=== PATIENT | female | born 1985 | race Caucasian/White ===

== ENCOUNTER 2024-11-21 15:34 | Outpatient (CLI) | payer BC, SELFPAY ==
[2024-11-21 15:50] VITALS: PULSE 79; O2SAT 100
[2024-11-21 15:51] VITALS: PULSE 78; O2SAT 90
[2024-11-21 15:52] VITALS: BP 113/65; PULSE 74
[2024-11-21 15:53] VITALS: TEMP 36.3
--- NOTE | 2024-11-21 16:14 | CRLHL7_ITS ---
For Patients: As a result of the Century Cures Act, medical imaging exams and procedure reports are released immediately into your electronic medical record. You may view this report before your referring provider. If you have questions, please contact your health care provider. Indication: contractions MIRA: 02/14/2025 Technique: Real-time sonographic images of the pelvis were obtained transabdominally using grayscale, color, and Doppler imaging. Comparison: None. Findings: A single intrauterine is present in breech position. Cardiac activity in the fetus is demonstrated at 150 BPM. Placenta: Posterior right. No previa or abruption. Amniotic Fluid: JAMES 19.8 cm, single deepest pocket measures 8.1 centimeter. Cervix is closed, measuring 4.1 centimeter. Impression: 1. Single living intrauterine gestation in breech presentation, with heartrate 150 BPM. 2. Posterior right placenta without previa or abruption. 3. JAMES 19.8 cm. Dictated by Sumanth Mcguire MD @ 11/21/2024 5:58:37 PM (Electronically Signed)
[2024-11-21 16:24] LABS: Appearance Urine Clear (Clear); Bilirubin Urine Negative (Negative); Blood Urine Negative (Negative); Color Urine Yellow (Yellow); Glucose Urine Negative (Negative); Ketones Urine Negative (Negative); Leukocyte Esterase Urine Negative (Negative); Nitrite Urine Negative (Negative); Protein Urine Negative (Negative); Specific Gravity Urine <= 1.005 (1.000-1.030); Urobilinogen Urine 0.2 (0.2-1.0); pH Urine 5.5 (5.0-8.5)
[2024-11-21 16:31] LABS: RBC Urine 0-2 (0-2); WBC Urine 0-2 (0-5)
[2024-11-21 16:36] LABS: Clue Cells No Clue Cells Seen (None Seen); Trichomonas No Trichomonas Seen (None Seen); Yeast No Yeast Seen (None Seen)
--- NOTE | 2024-11-21 17:23 | PM.OBLDTN ---
OB - Triage/Final Diagnosis Visit Information Time Seen by Provider: 17:23 Date Seen: 11/21/24 Narrative: The patient is a 39 year old 3 para 2 at 27+6 weeks gestation, who presents with contractions. She receives care through [facility] in [place] and is planning a home . Reports contractions and upper abdominal pain starting last evening. Kept her awake most of the night. Every 5-10 minutes at the most frequent. Also had some diarrhea, no nausea or vomiting, though notes that stomach flu recent went through her home. This AM contractions less frequent, but still fairly frequent. No LOF or vaginal bleeding. Normal movement. She called her research and development scientist and it was recommend she be evaluated at a hospital L&D. Here, she reports infrequent contractions during her stay in triage. I'm feeling the best I've felt in a few days. Evaluation Laboratory results: Laboratory Tests 11/21/24 11/21/24 Range/Units 16:17 16:15 Urine Color Yellow (Yellow) Urine Appearance Clear (Clear) Urine pH 5.5 (5.0-8.5) Ur Specific [place] <= 1.005 (1.000-1.030) Urine Protein Negative (Negative) Urine Glucose (UA) Negative (Negative) Urine Ketones Negative (Negative) Urine Blood Negative (Negative) Urine Nitrite Negative (Negative) Urine Bilirubin Negative (Negative) Urine Urobilinogen 0.2 (0.2-1.0) Ur Leukocyte Esterase Negative (Negative) Urine RBC 0-2 (0-2) Urine WBC 0-2 (0-5) Ur Squamous Epith Cells None (None-Few) Urine Bacteria None (None) Vaginal Trichomonas No Trichomonas Seen (None Seen) Vaginal Yeast No Yeast Seen (None Seen) Vaginal Clue Cells No Clue Cells Seen (None Seen) Vital signs: Vital Signs - 24 hr 11/21/24 15:50 11/21/24 15:51 11/21/24 15:52 Temperature Pulse Rate 74 Blood Pressure 113/65 Pulse Oximetry 100 90 11/21/24 15:53 Temperature 97.4 F L Pulse Rate Blood Pressure Pulse Oximetry Fetus (Single) Heart Rate Baseline: 130 Interlocking And Signal Mechanic Variability: Moderate (6-25) Monitor Accelerations: Present Monitor Decelerations: None Final Diagnosis (1) uterine contractions in second trimester, antepartum: Status: Acute Problem details: [place] shows 1 contraction during NST. Patient subjectively reports 3 contractions during her 90 minute stay in triage. FHT catgory I. US cervical length obtained, 4 cm ( fibronectin collected, but not sent). RN cervical exam long, thick and high. Negative urine and wet prep. Reviewed results with patient. No evidence of regular contractions leading to cervical change at this point. Counseled her to monitor for increasing frequency, intensity of contractions, LOF, vaginal bleeding or decreased movement, all of which would merit re-evaluation. Expresses understanding and agreement. She has upcoming appt with her research and development scientist in one week. Total Time Spent Total Time Spent: 30 minutes
--- NOTE | 2024-11-21 17:26 | PC.NURSE ---
This nurse went into the patient's room to go over discharge paperwork after the provider spoke with the patient on the reassuring lab results. When this nurse got into the room, the patient was not in the room and had already left. This nurse was unable to go over discharge paperwork and patient sign it, made provider aware.
--- NOTE | 2024-11-21 18:05 | PC.OBNST ---
NST Note NST Note Start: 11/21/24 15:44 Freq: ONCE Status: Active Protocol: Document 11/21/24 18:04 ABP (Rec: 11/21/24 18:05 ABP [id number]) NST Note 3 Para (# of births) 2 EDC 02/14/25 Gestational Age In Weeks & Days 27 Weeks & 6 Days Patient Presented with Complaint(s) of Contractions/cramping Reactive Yes Appropriate for Gestational Age Yes RN Elfego Carroll, RN Date 11/21/24 Reactive Yes Appropriate for Gestational Age Yes YESSI Thomas RN Date 11/21/24 OB NST charge Yes Complete NST Note via Write Note Yes The provider's electronic signature indicates the NST is reactive/appropriate for gestational age. *Note to provider: If an addendum is required, open the patient's chart and click on the note under the Nurse/Allied Health tab.
== END 2024-11-21 17:25 | disposition home or self-care (01) ==
LOC: OB OUT 15:35 → OB 15:35
PROVIDERS: Visit Provider Family Medicine
DX: O47.02 False labor before 37 completed weeks of gestation, second trimester (principal); Z3A.27 27 weeks gestation of pregnancy
CPT/HCPCS: 59025; 76815; 76817; 81001; 84112; 87210; 99199; G0463